=== PATIENT | female | born 1990 | race Caucasian/White ===

== ENCOUNTER 2019-10-25 12:27 | Outpatient (RCR) | payer MEDICAID ==
[~2019-10-25] VITALS: Ht 160 cm; Wt 76.5 kg
[2019-10-25] MEDS ORDERED: INSU100V16 SQ (12:35)
[2019-10-25] MEDS ORDERED: LEVO125T6 PO (12:38)
[2019-10-25] MEDS ORDERED: BUPR150T14 PO (12:38)
[2019-10-25] MEDS ORDERED: OXYB10TA29 PO (12:38)
[2019-10-25] MEDS ORDERED: ESCI20TA PO (12:38)
[2019-10-25] MEDS ORDERED: HYDR-3584 PO (12:38)
[2019-10-25] MEDS ORDERED: PREN1TAB79 PO (12:39)
[2019-10-25 13:03] LABS: BASOPHILS % (AUTO) 0 % (0-10); EOSINOPHILS # (AUTO) 0.1 10^3/uL (0.0-0.3); EOSINOPHILS % (AUTO) 1 % (0-10); HEMATOCRIT 41 % (35-52); HEMOGLOBIN 13.9 G/DL (11.5-16.0); LYMPHOCYTES # (AUTO) 1.7 X 10^3 (1.0-4.0); LYMPHOCYTES % (AUTO) 21 % (12-44); MEAN CORPUSCULAR HEMOGLOBIN 30 PG (25-34); MEAN CORPUSCULAR HGB CONC 34 G/DL (32-36); MEAN CORPUSCULAR VOLUME 89 FL (80-99); MEAN PLATELET VOLUME 10.1 FL (7.4-10.4); MONOCYTES # (AUTO) 0.5 X 10^3 (0.0-1.0); MONOCYTES % (AUTO) 6 % (0-12); NEUTROPHILS # (AUTO) 5.9 X 10^3 (1.8-7.8); NEUTROPHILS % (AUTO) 72 % (42-75); PLATELET COUNT 271 10^3/uL (130-400); WHITE BLOOD COUNT 8.2 10^3/uL (4.3-11.0)
[2019-10-25 13:14] LABS: CHLORIDE 106 MMOL/L (98-107); POTASSIUM 3.9 MMOL/L (3.6-5.0); SODIUM 139 MMOL/L (135-145)
[2019-10-25 13:15] LABS: CALCIUM 9.1 MG/DL (8.5-10.1)
[2019-10-25 13:16] LABS: GLUCOSE 194 MG/DL (70-105)
[2019-10-25 13:17] LABS: CARBON DIOXIDE 23 MMOL/L (21-32)
[2019-10-25 13:20] LABS: CREATININE SERUM 0.93 MG/DL (0.60-1.30); GFR ESTIMATED > 60
[2019-10-25 13:21] LABS: BUN/CREATININE RATIO 9
[2019-10-31] MEDS ORDERED: HYDR15SO8 PO (10:16)
[2019-10-31] MEDS ORDERED: DEXAINTSOL PO (10:16)
[2019-10-31] MEDS ORDERED: AMOX250S5 PO (10:16)
[2019-10-31] MEDS ORDERED: TETRACAINESUCKERS MT (10:16)
== END 2020-01-23 | disposition home or self-care (01) ==
LOC: PREOP 12:27 → EDUNIT# 13:30
PROVIDERS: ATTEND Otolaryngology Otolaryngology/Facial Plastic Surgery
DX: Z01.812 Encounter for preprocedural laboratory examination (principal); J02.0 Streptococcal pharyngitis; Z20.828 Contact with and (suspected) exposure to other viral communicable diseases; Z11.2 Encounter for screening for other bacterial diseases
CPT/HCPCS: 80048; 85025; 87081; U0002; 36415; 87635

== ENCOUNTER 2019-10-31 06:34 | Day surgery (SDC) | payer MEDICAID ==
[~2019-10-31] VITALS: Ht 160 cm; Wt 76.5 kg
[2019-10-31] VITALS (11 sets, daily range): BP systolic 109–143; BP diastolic 72–102
[~2019-10-31 06:34] MED LIST: BUPR150T14 PO; ESCI20TA PO; HYDR-3584 PO; INSU100V16 SQ; LEVO125T6 PO; OXYB10TA29 PO; PREN1TAB79 PO
--- OUTSIDE RECORDS SUMMARY | 2019-10-31 06:39 | XMS REPORT | Continuity of Care Document ---
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 count (count/volume) 0.0 10*3/uL 0.0-0.1 Whole blood basic metabolic panel - 10/08 12:50 Serum or plasma sodium measurement (moles/volume) 139 mmol/L 135-145 Serum or plasma potassium measurement (moles/volume) 3.9 mmol/L 3.6-5.0 Serum or plasma chloride measurement (moles/volume) 106 mmol/L 98-107 Carbon dioxide 23 mmol/L 21-32 Serum or plasma anion gap determination (moles/volume) 10 mmol/L 5-14 Serum or plasma urea nitrogen measurement (mass/volume ) 8 mg/dL 7-18 Serum or plasma creatinine measurement (mass/volume) 0.93 mg/dL 0.60-1.30 Serum or plasma urea nitrogen/creatinine mass ratio 9 NRG Serum or plasma creatinine measurement w ith calculation of estimated glomerular filtration rate > NRG Serum or plasma glucose measurement (mass/volume) 194 mg/dL 70-105 Serum or plasma calcium measurement (mass/volume) 9.1 mg/dL 8.5-10.1 Coronavirus SARS-CoV-2 SO 2018 - 0 12:59 Coronavirus Ab [Units/volume] in Serum Negative Negative Encounters ACCT No. Visit Date/Time Discharge Status Pt. Type Provider Facility Loc./Unit Complaint [id number] 09/12/2019 11:06:00 Document Registration [id number] 01/24/2019 01:05:00 Document Registration [id number] 09/06/2019 08:35:12 0 23:59:59 CLS Outpatient KARLENE BURTONEE D [facility] CODE [id number] 06/05/2019 13:25:35 0 23:59:59 CLS Outpatient JOSEPHINE LEBRON D [facility] CODE [id number] 02/04/2019 10:51:39 9 23:59:59 CLS Outpatient AGUSTÍN GROSS [facility] CODE [id number] 06/05/2018 15:38:24 9 23:59:59 CLS Outpatient [facility] CODE [id number] 06/05/2018 14:35:39 9 23:59:59 CLS Outpatient JOSEPHINE LEBRON D [facility] CODE [id number] 03/30/2018 14:14:16 8 23:59:59 CLS Outpatient KARLENE BURTONEE D [facility] CODE [id number] 04/21/2017 13:53:54 7 23:59:59 CLS Outpatient JOSEPHINE LEBRON D [facility] CODE [id number] 01/11/2017 14:59:12 7 23:59:59 CLS Outpatient [facility] [id number] 01/11/2017 14:41:23 7 23:59:59 CLS Outpatient KEILA FALCON [facility] [id number] 01/04/2017 11:01:41 7 23:59:59 CLS Outpatient JOSEPHINE LEBRON D [facility] CODE [id number] 10/24/2016 09:13:09 7 23:59:00 DIS [id number] 08/19/2016 11:52:17 7 23:59:59 CLS Outpatient [facility] CODE [id number] 08/19/2016 11:04:19 03/31/201 7 23:59:59 CLS Outpatient AGUSTÍN GROSS [facility] CODE [id number] 02/26/2016 14:18:38 6 23:59:59 CLS Outpatient LEBRON BURTON [facility] CODE [id number] 11/18/2015 09:53:56 6 23:59:59 CLS Outpatient [facility] CODE [id number] 11/18/2015 09:51:09 6 23:59:59 CLS Outpatient LEBRON BURTON [facility] CODE [id number] 07/31/2015 12:46:00 6 23:59:59 CLS Outpatient LEBRON BURTON [facility] CODE [id number] 12/22/2017 11:36:49 Document Registration [id number] 09/12/2016 12:11:03 Document Registration [id number] 10/25/2019 12:27:00 020 23:59:59 CLS Outpatient KATHLEEN KRAMER MD [facility] PREOP RECURENT STREP [id number] 10/31/2019 08:15:00 P EN Preadmit KATHLEEN KRAMER MD [facility] REC. STREP [id number] 09/16/2017 00:06:00 Document Registration [id number] 09/13/2019 13:45:00 09/13/2019 17:45: 00 DIS Outpatient SONU LEWIS [facility] CL [id number] 09/08/2019 21:52:00 09/08/2019 22:53: 00 DIS Emergency KATHLEEN LOU [facility] ED [id number] 09/08/2019 12:14:00 09/08/2019 13:15: 00 DIS Emergency DASHA [facility] ED [id number] 08/15/2019 13:02:00 08/15/2019 17:02: 00 DIS Outpatient ONI BURNETT [id number] 08/15/2019 12:45:00 08/15/2019 16:45: 00 DIS Outpatient ONI BURNETT [facility] CL [id number] 07/29/2019 16:15:00 07/29/2019 20:15: 00 DIS Outpatient SONU LEWIS [facility] CL [id number] 07/29/2019 15:36:00 07/29/2019 19:36: 00 DIS Outpatient SONU LEWIS [id number] 07/26/2019 00:30:00 07/26/2019 00:58: 00 DIS Emergency BEN STARKS [facility] ED [id number] 05/30/2019 11:41:00 05/30/2019 15:41: 00 DIS Outpatient PETER STEENA [id number] 05/19/2019 00:49:00 05/19/2019 01:25: 00 DIS Emergency LUISITO FUNEZ [facility] ED [id number] 05/17/2019 13:45:00 05/17/2019 17:45: 00 DIS Outpatient WHITLEY [facility] CL [id number] 04/24/2019 11:45:00 04/24/2019 23:59: 59 CLS Outpatient SONU LEWIS [id number] 04/10/2019 16:00:00 04/10/2019 20:00: 00 DIS Outpatient DEBBIE [facility] [id number] 03/29/2019 15:15:00 03/29/2019 19:15: 00 DIS Outpatient DEBBIE, [facility] [id number] 02/14/2019 11:15:00 02/14/2019 15:15: 00 DIS Outpatient DEBBIE [facility] [id number] 02/01/2019 14:27:00 02/01/2019 18:27: 00 DIS Outpatient SONU LEWIS [id number] 01/24/2019 09:30:00 01/24/2019 23:59: 59 CLS Outpatient [id number] 01/22/2019 10:30:00 01/22/2019 23:59: 59 CLS Outpatient DEBBIE [facility] [id number] 01/22/2019 11:31:00 01/22/2019 15:31: 00 DIS Outpatient SONU LEWIS [id number] 08/29/2018 15:30:00 08/29/2018 19:30: 00 DIS Outpatient SONU LEWIS [id number] 07/11/2018 10:45:00 07/11/2018 14:45: 00 DIS Outpatient DEBBIE [facility] CL [id number] 06/29/2018 08:36:00 06/29/2018 09:56: 00 DIS Emergency JOSEPHINE [facility] ED [id number] 06/04/2018 10:31:00 06/04/2018 14:31: 00 DIS Outpatient SONU LEWIS [id number] 06/04/2018 10:00:00 06/04/2018 14:00: 00 DIS Outpatient DEBBIE [facility] CL [id number] 05/31/2018 10:12:00 05/31/2018 23:59: 59 CLS Outpatient YUNG BURTON [id number] 05/31/2018 10:43:00 05/31/2018 12:48: 00 DIS Emergency JOSEPHINE [facility] ED [id number] 04/09/2018 15:00:00 04/09/2018 19:00: 00 DIS Outpatient DEBBIE [facility] CL [id number] 03/30/2018 13:04:00 03/30/2018 17:04: 00 DIS Outpatient SONU LEWIS [id number] 02/26/2018 23:38:00 02/27/2018 01:10: 00 DIS Emergency RAUDEL, [facility] ED [id number] 02/06/2018 15:45:00 02/06/2018 19:45: 00 DIS Outpatient JOSEPHINE [facility] CL [id number] 01/12/2018 10:29:00 01/12/2018 13:50: 00 DIS Emergency JOSEPHINE [facility] ED [id number] 12/25/2017 12:13:00 12/25/2017 16:13: 00 DIS Outpatient YUNG BURTON [id number] 12/25/2017 11:45:00 12/25/2017 15:45: 00 [id number] 12/22/2017 10:20:00 12/22/2017 14:20: 00 DIS Outpatient SONU LEWIS [id number] 10/27/2017 10:57:00 10/27/2017 11:34: 00 DIS Emergency CONNIE [facility] ED [id number] 10/17/2017 15:45:00 10/17/2017 19:45: 00 DIS Outpatient SLOYER, [facility] CL [id number] 10/17/2017 15:38:00 10/17/2017 19:38: 00 DIS Outpatient SLOSONU OROZCO [id number] 07/31/2017 14:00:00 10/17/2017 14:50: 00 DIS R SONU LEWIS [id number] 10/06/2017 15:30:00 10/06/2017 19:30: 00 DIS Outpatient SLOYER, [facility] CL [id number] 09/13/2017 16:28:00 09/13/2017 20:28: 00 DIS Outpatient SLOERNESTO [facility] [id number] 09/13/2017 15:30:00 09/13/2017 19:30: 00 DIS Outpatient SLOYER, [facility] CL [id number] 09/04/2017 13:15:00 09/04/2017 17:15: 00 [facility] [id number] 08/12/2017 10:00:00 08/12/2017 14:00: 00 [id number]2017 15:49:00 08/02/2017 19:49: 00 DIS Outpatient DEBBIE [facility] [id number] 08/02/2017 15:15:00 08/02/2017 19:15: 00 DIS Outpatient SLOYER, [facility] CL [id number] 07/24/2017 10:00:00 07/24/2017 14:00: 00 DIS Outpatient SLOYER, [facility] CL [id number] 07/17/2017 09:13:00 07/17/2017 13:13: 00 DIS Outpatient [id number] 07/17/2017 09:10:00 07/17/2017 12:10: 00 [id number] 07/13/2017 15:00:00 07/13/2017 19:00: 00 DIS Outpatient SLOYER, [facility] CL [id number] 04/26/2017 13:45:00 04/26/2017 17:45: 00 [facility] [id number] 04/21/2017 12:13:00 04/21/2017 16:13: 00 DIS Outpatient SLOYER, [facility] OT [id number] 03/14/2017 16:03:00 03/14/2017 20:03: 00 DIS Outpatient SLOYER, [facility] OT [id number] 03/14/2017 15:15:00 03/14/2017 19:15: 00 DIS Outpatient SLOYER, [facility] CL [id number] 01/25/2017 15:43:00 01/25/2017 19:43: 00 DIS Outpatient SLOYER, [facility] OT [id number] 01/25/2017 15:00:00 01/25/2017 19:00: 00 DIS Outpatient SLOYER, [facility] CL [id number] 01/16/2017 14:15:00 01/16/2017 18:15: 00 DIS Outpatient SLOYER, [facility] CL [id number] 01/11/2017 21:37:00 01/13/2017 18:00: 00 DIS Inpatient SLOYER, [facility] NS [id number] 01/11/2017 11:18:00 01/11/2017 23:59: 59 CLS Outpatient SLOYER, [facility] OT [id number] 01/09/2017 16:00:00 01/09/2017 20:00: 00 DIS Outpatient SLOYER, [facility] CL [id number] 01/02/2017 15:30:00 01/02/2017 19:30: 00 DIS Outpatient SLOYER, [facility] CL [id number] 01/02/2017 14:46:00 01/02/2017 18:46: 00 DIS Outpatient S[facility]ERNESTO [facility] [id number] 12/26/2016 14:45:00 12/26/2016 18:45: 00 DIS Outpatient SLOYER, [facility] CL [id number] 12/12/2016 13:30:00 12/12/2016 17:30: 00 [facility] [id number] 12/07/2016 15:17:00 12/07/2016 23:59: 59 CLS Outpatient [facility] OT [id number] 12/07/2016 17:03:00 12/07/2016 23:53: 00 [facility] [id number] 12/02/2016 14:55:00 12/02/2016 18:55: 00 DIS Outpatient SLOYER, [facility] OT [id number] 12/02/2016 14:15:00 12/02/2016 18:15: 00 DIS Outpatient SLOERNESTO [facility] CL [id number] 11/21/2016 10:00:00 11/21/2016 14:00: 00 DIS Outpatient SLOERNESTO [facility] CL [id number] 10/31/2016 09:57:00 10/31/2016 13:57: 00 DIS Outpatient SLOYER, [facility] OT [id number] 10/31/2016 09:15:00 10/31/2016 13:15: 00 [facility] [id number] 10/04/2016 09:30:00 10/04/2016 13:30: 00 DIS OP SONU LEWIS [id number] 10/04/2016 09:00:00 10/04/2016 13:00: 00 DIS CB DEBBIE [facility] CL [id number] 09/30/2016 10:45:00 09/30/2016 14:45: 00 DIS RB WHITLEY [facility] CL [id number] 09/06/2016 11:00:00 09/06/2016 15:00: 00 DIS CB DEBBIE [facility] CL [id number] 09/06/2016 09:56:00 09/06/2016 13:56: 00 DIS OP SONU LEWIS [id number] 09/06/2016 11:16:00 09/06/2016 12:16: 00 DIS Outpatient DEBBIE [facility] OT [id number] 08/26/2016 15:00:00 08/26/2016 16:32: 00 DIS ED Olga [facility] ED [id number] 08/16/2016 14:22:00 08/16/2016 18:22: 00 DIS OP SONU LEWIS [id number] 08/16/2016 13:30:00 08/16/2016 17:30: 00 DIS CB DEBBIE [facility] CL [id number] 08/09/2016 11:05:00 08/09/2016 15:05: 00 DIS OP DEBBIE [facility] OT [id number] 08/09/2016 10:00:00 08/09/2016 14:00: 00 DIS CB SONU LEWIS [facility] CL [id number] 07/28/2016 14:33:00 07/28/2016 18:33: 00 DIS OP [facility] OT [id number] 07/12/2016 10:31:00 07/12/2016 14:31: 00 DIS OP SONU LEWIS [facility] OT [id number] 07/12/2016 09:45:00 07/12/2016 13:45: 00 DIS CB SONU LEWIS [facility] CL [id number] 06/13/2016 10:30:00 06/13/2016 14:30: 00 DIS CB DEBBIE [facility] CL [id number] 06/13/2016 10:00:00 06/13/2016 14:00: 00 DIS OP SONU LEWIS [id number] 05/30/2016 09:54:00 05/30/2016 13:54: 00 DIS OP SONU LEWIS [id number] 05/23/2016 11:54:00 05/23/2016 15:54: 00 DIS OP SONU LEWIS [facility] OT [id number] 05/23/2016 11:45:00 05/23/2016 15:45: 00 DIS CB DEBBIE [facility] CL [id number] 05/20/2016 15:23:00 05/20/2016 19:23: 00 DIS OP LUISITO FUNEZ [id number] 05/20/2016 14:45:00 05/20/2016 18:45: 00 DIS CB LUISITO FUNEZ [facility] CL [id number] 05/09/2016 11:37:00 05/09/2016 15:37: 00 DIS OP SONU LEWIS [facility] OT [id number] 05/09/2016 11:15:00 05/09/2016 15:15: 00 DIS CB DEBBIE [facility] CL [id number] 04/06/2016 15:53:00 04/06/2016 19:53: 00 DIS OP DEBBIE [facility] OT [id number] 04/06/2016 15:45:00 04/06/2016 19:45: 00 DIS CB SLOYER, SONU M [facility] CL [id number] 03/14/2016 14:15:00 03/14/2016 18:15: 00 DIS CB SONU LEWIS [facility] CL [id number] 02/24/2016 11:22:00 02/24/2016 15:22: 00 DIS OP JOSEPHINELEBRON [facility] [id number] 08/31/2015 15:15:00 08/31/2015 19:15: 00 DIS CB MARIA ISABELEMBERBLAKETATA [facility] CL [id number] 07/30/2015 15:27:00 07/30/2015 19:27: 00 DIS OP DWAIN [facility] OT [id number] 04/18/2015 11:00:00 04/18/2015 15:00: 00 DIS CB SONU LEWIS [facility] CL [id number] 04/10/2015 22:38:00 04/11/2015 00:15: 00 [facility] [id number] 02/23/2015 13:43:00 02/23/2015 17:43: 00 DIS OP JOSEPHINE [facility] OT [id number] 01/28/2015 14:15:00 01/28/2015 18:15: 00 DIS CB DEBBIE [facility] CL [id number] 11/04/2014 12:51:00 11/04/2014 16:51: 00 [facility] [id number] 10/14/2014 10:45:00 10/14/2014 14:45: 00 DIS OP JOSEPHINE [facility] OT [id number] 03/14/2017 15:00:00 PEN RB [id number] 01/17/2017 00:00:00 PEN OP SONU LEWIS [id number] 03/14/2016 15:15:00 PEN CB [id number] 12/14/2015 00:33:00 Document Registration [id number] 07/28/2014 12:04:00 Document Registration [id number] 06/19/2014 14:39:00 Document Registration [id number] 06/06/2014 14:30:00 Document Registration [id number] 02/07/2014 14:45:00 Document Registration [id number] 11/27/2013 14:45:00 Document Registration
[2019-10-31] MEDS: LACTATED RINGERS 1,000 ML IV PRN ×2 (07:20→10:02)
--- NOTE | 2019-10-31 07:54 | Progress Note-Pre Operative ---
Pre-Operative Progress Note H&P Reviewed The H&P was reviewed, patient examined and no changes noted. Date Seen by Provider: Oct 31, 2019 Time Seen by Provider: 07:45 Date H&P Reviewed: Oct 31, 2019 Time H&P Reviewed: 07:45 Pre-Operative Diagnosis: Chronic Tonsillitis KATHLEEN KRAMER MD Oct 31, 2019 07:54
[2019-10-31] MEDS ORDERED: MIDAZOLAM 2 MG/2 ML (VERSED) VIAL ONE (08:00)
[2019-10-31] MEDS ORDERED: fentaNYL INJECTION 100 MCG/2 ML AMP ONE (08:09)
[2019-10-31] MEDS ORDERED: ROCURONIUM 10 MG/ML 5 ML SYRINGE IV ONE ×2 (08:10→09:08)
[2019-10-31] MEDS ORDERED: LIDOCAINE PF 2% 5 ML (XYLOCAINE) VIAL ONE ×2 (08:10→09:08)
[2019-10-31] MEDS ORDERED: DEXAMETHASONE 10 MG/ML (DECADRON) 1 ML VIAL ONE (08:10)
[2019-10-31] MEDS ORDERED: ONDANSETRON 4 MG/2 ML (SDV) Z0FRAN ONE (08:10)
[2019-10-31] MEDS ORDERED: NEOSTIGMINE 3 MG/3 ML VIAL ONE (08:10)
[2019-10-31] MEDS ORDERED: proPOfol 200 MG/20 ML (DIPRIVAN) VIAL IV ONE (08:10)
[2019-10-31] MEDS ORDERED: GLYCOPYRROLATE 0.2 MG/ML (ROBINUL) 2 ML VIAL ONE (08:10)
[2019-10-31] MEDS ORDERED: NS IV 1000 ML 1,000 ML IV SCH (08:58)
--- NOTE | 2019-10-31 08:58 | Progress Note-Post Operative ---
Post-Operative Progess Note Surgeon (s)/Buzzle Buffer (s) Surgeon KATHLEEN KRAMER MD Buzzle Buffer n/a Pre-Operative Diagnosis Chronic Tonsillitis Post-Operative Diagnosis same Post-Op Procedure Note Date of Procedure: Oct 31, 2019 Name of Procedure Performed: Tonsillectomy Description & Findings Description and Findings: n/a Anesthesia Type get Estimated Blood Loss minimal Packing none. Specimen(s) collected/removed tonsils KATHLEEN KRAMER MD Oct 31, 2019 08:58
[2019-10-31] MEDS ORDERED: APAP 325 MG/10.15 ML LIQ (TYLENOL) UDC PO PRN (09:00)
[2019-10-31] MEDS ORDERED: HYDROcodone/APAP 7.5MG-325 MG/15 ML (LORTAB) UDC PO PRN (09:00)
[2019-10-31] MEDS ORDERED: ONDANSETRON 4 MG/2 ML (SDV) Z0FRAN IVP PRN (09:15)
[2019-10-31] MEDS ORDERED: morphine INJ 10 MG/ML 1ML (SYR OR VIAL) IVP ONE (09:15)
[2019-10-31] MEDS ORDERED: HYDROmorphone 2 MG/ML VIAL (DILAUDID) IV ONE (09:15)
[2019-10-31] MEDS ORDERED: morphine INJ 10 MG/ML 1ML (SYR OR VIAL) ONE (09:23)
[2019-10-31] MEDS ORDERED: AMOX250S5 PO (10:16)
[2019-10-31] MEDS ORDERED: DEXAINTSOL PO (10:16)
[2019-10-31] MEDS ORDERED: HYDR15SO8 PO (10:16)
[2019-10-31] MEDS ORDERED: TETRACAINESUCKERS MT (10:16)
--- NOTE | 2019-10-31 14:56 | Anesthesia-General Post-Op ---
General Patient Condition Mental Status/LOC: Same as Preop Cardiovascular: Satisfactory Nausea/Vomiting: Absent Respiratory: Satisfactory Pain: Controlled Complications: Absent Post Op Complications Complications None Follow Up Care/Instructions Patient Instructions None needed. Anesthesia/Patient Condition Patient Condition Patient was seen this morning after the procedure and she was doing well, no complaints, stable vital signs, no apparent adverse anesthesia problems. NADJA CRUZ DO Oct 31, 2019 14:56
== END 2019-10-31 12:00 | disposition home or self-care (01) ==
LOC: SDC 06:34
PROVIDERS: ATTEND Otolaryngology Otolaryngology/Facial Plastic Surgery
DX: J35.01 Chronic tonsillitis (principal); E05.00 Thyrotoxicosis with diffuse goiter without thyrotoxic crisis or storm; E11.9 Type 2 diabetes mellitus without complications; F17.290 Nicotine dependence, other tobacco product, uncomplicated; F32.9 Major depressive disorder, single episode, unspecified; F41.9 Anxiety disorder, unspecified; K58.1 Irritable bowel syndrome with constipation; K58.0 Irritable bowel syndrome with diarrhea; Z91.040 Latex allergy status; Z91.048 Other nonmedicinal substance allergy status; Z79.899 Other long term (current) drug therapy; Z79.4 Long term (current) use of insulin
CPT/HCPCS: 82962; 84703